=== PATIENT | male | born 1965 | race Caucasian/White ===

== ENCOUNTER 2020-05-18 10:59 | Emergency (ER) | payer MEDICARE, MEDICAID ==
[~2020-05-18] VITALS: Ht 170.2 cm; Wt 80.0 kg
[2020-05-18 11:25] LABS: HEMOGLOBIN 14.1 g/dl (14.0-18.0); IMMATURE GRANULOCYTES 0.4 % (0.0-5.0); MEAN CORPUSCULAR HGB 31.5 pG CALC (26.0-32.0); MEAN CORPUSCULAR HGB CONC 32.8 g/dL CAL (32.0-36.0); NEUT# 4.48 thou/uL (1.82-7.42); RED BLOOD COUNT 4.48 mill/uL (4.70-6.10); RED CELL DISTRI WIDTH 11.8 % (11.5-15.5)
[2020-05-18 11:45] LABS: ALBUMIN 4.3 g/dL (3.2-5.0); ALKALINE PHOSPHATASE 42 u/l (38-126); ANION GAP 12 (6-22 (CALC)); BILIRUBIN, TOTAL 0.9 mg/dL (0.0-1.4); BUN 12 mg/dL (9-20); BUN/CREATININE RATIO 13 (12-20 (CALC)); CARBON DIOXIDE 25 mmol/l (22-30); CHLORIDE 98 mmol/l (95-108); CREATININE 0.9 mg/dL (0.7-1.3); GFR > 60 ML/MIN (>=60 (CALC)); GFR FOR AFR.AMER. > 60 ML/MIN (>=60 (CALC)); POTASSIUM 3.1 mmol/l (3.5-5.1); SGOT/AST 49 u/l (17-59); SODIUM 133 mmol/l (137-146); TOTAL PROTEIN 7.1 g/dL (6.3-8.2)
[2020-05-18 13:10] VITALS: BP 100/56
== END 2020-05-18 13:10 | disposition home or self-care (01) ==
LOC: ED 10:59
PROVIDERS: Family Medicine
DX: R42 Dizziness and giddiness (principal); E87.6 Hypokalemia; I10 Essential (primary) hypertension

== ENCOUNTER 2020-05-20 10:13 | Emergency (ER) | payer MEDICARE, MEDICAID ==
[~2020-05-20] VITALS: Ht 170.2 cm; Wt 76.3 kg
[2020-05-20 10:49] LABS: HEMATOCRIT 42.9 % (39.0-50.0); HEMOGLOBIN 14.2 g/dl (14.0-18.0); IMMATURE GRANULOCYTES 0.2 % (0.0-5.0); MEAN CELL VOLUME 95.1 fL CALC (80.0-100.0); MEAN CORPUSCULAR HGB 31.5 pG CALC (26.0-32.0); MEAN CORPUSCULAR HGB CONC 33.1 g/dL CAL (32.0-36.0); NEUT# 2.79 thou/uL (1.82-7.42); RED BLOOD COUNT 4.51 mill/uL (4.70-6.10); RED CELL DISTRI WIDTH 11.7 % (11.5-15.5)
[2020-05-20] MEDS ORDERED: SIMVASTATIN20 MG PO (10:51)
[2020-05-20] MEDS ORDERED: FUROSEMIDE20 MG PO (10:52)
[2020-05-20] MEDS ORDERED: SEROQUEL100 MG PO (10:52)
[2020-05-20] MEDS ORDERED: OMEPRAZOLE DR20 MG PO (10:53)
[2020-05-20] MEDS ORDERED: LISINOPRIL40 MG PO (10:53)
[2020-05-20] MEDS ORDERED: NORVASC5 M1 PO (10:55)
[2020-05-20 11:15] LABS: ANION GAP 12 (6-22 (CALC)); BUN 7 mg/dL (9-20); BUN/CREATININE RATIO 11 (12-20 (CALC)); CARBON DIOXIDE 25 mmol/l (22-30); CHLORIDE 103 mmol/l (95-108); CREATININE 0.6 mg/dL (0.7-1.3); GFR > 60 ML/MIN (>=60 (CALC)); GFR FOR AFR.AMER. > 60 ML/MIN (>=60 (CALC)); POTASSIUM 3.8 mmol/l (3.5-5.1); SODIUM 136 mmol/l (137-146)
[2020-05-20 11:25] VITALS: BP 132/78
== END 2020-05-20 11:25 | disposition home or self-care (01) ==
LOC: ED 10:13
PROVIDERS: Family Medicine
DX: E87.6 Hypokalemia (principal); R42 Dizziness and giddiness; I10 Essential (primary) hypertension; F17.200 Nicotine dependence, unspecified, uncomplicated

== ENCOUNTER 2021-03-04 22:34 | Emergency (ER) | payer MEDICARE, MEDICAID ==
[~2021-03-04] VITALS: Ht 170.2 cm; Wt 72.0 kg
[~2021-03-04 22:34] MED LIST: FUROSEMIDE20 MG PO; LISINOPRIL40 MG PO; NORVASC5 M1 PO; OMEPRAZOLE DR20 MG PO; SEROQUEL100 MG PO; SIMVASTATIN20 MG PO
[2021-03-04 23:25] LABS: HEMOGLOBIN 15.1 g/dl (14.0-18.0); IMMATURE GRANULOCYTES 0.6 % (0.0-5.0); MEAN CORPUSCULAR HGB 31.9 pG CALC (26.0-32.0); MEAN CORPUSCULAR HGB CONC 32.8 g/dL CAL (32.0-36.0); NEUT# 2.84 thou/uL (1.82-7.42); RED BLOOD COUNT 4.74 mill/uL (4.70-6.10); RED CELL DISTRI WIDTH 13.1 % (11.5-15.5)
[2021-03-04 23:26] LABS: URINE BILIRUBIN - DIPSTICK NEGATIVE (NEGATIVE); URINE BLOOD DIPSTICK NEGATIVE (NEGATIVE); URINE COLOR YELLOW; URINE GLUCOSE - DIPSTICK NEGATIVE (NEGATIVE); URINE KETONE NEGATIVE (NEGATIVE); URINE LEUK ESTERASE NEGATIVE (NEGATIVE); URINE PH 5.5 (4.5-8.0); URINE PROTEIN - DIPSTICK NEGATIVE (NEG-TRACE); URINE UROBILINOGEN - DIPSTICK 0.2 E.U./dL (0.2)
[2021-03-04 23:31] LABS: URINE NITRITE - DIPSTICK NEGATIVE (Negative)
[2021-03-04 23:39] LABS: ALBUMIN 4.2 g/dL (3.2-5.0); ALKALINE PHOSPHATASE 34 u/l (38-126); BUN 10 mg/dL (9-20); BUN/CREATININE RATIO 14 (12-20 (CALC)); CARBON DIOXIDE 25 mmol/l (22-30); CHLORIDE 107 mmol/l (95-108); CREATININE 0.7 mg/dL (0.7-1.3); ETHYL ALCOHOL 292 mg/dl (0-30); GFR > 60 ML/MIN (>=60 (CALC)); GFR FOR AFR.AMER. > 60 ML/MIN (>=60 (CALC)); LIPASE 346 u/l (23-300); SGOT/AST 61 u/l (17-59); TOTAL PROTEIN 7.3 g/dL (6.3-8.2)
[2021-03-04 23:41] LABS: ANION GAP 15 (6-22 (CALC)); BILIRUBIN, TOTAL 0.2 mg/dL (0.0-1.4); SODIUM 143 mmol/l (137-146)
[2021-03-05 06:45] VITALS: BP 104/58
== END 2021-03-05 08:25 | disposition home or self-care (01) ==
LOC: ED 22:34
PROVIDERS: Family Medicine
DX: F10.129 Alcohol abuse with intoxication, unspecified (principal); I10 Essential (primary) hypertension; F17.200 Nicotine dependence, unspecified, uncomplicated

== ENCOUNTER 2021-06-08 00:11 | Emergency (ER) | payer MEDICARE, MEDICAID ==
[~2021-06-08] VITALS: Ht 170.2 cm; Wt 81.0 kg
[2021-06-08 01:06] LABS: HEMATOCRIT 44.1 % (39.0-50.0); HEMOGLOBIN 14.6 g/dl (14.0-18.0); IMMATURE GRANULOCYTES 0.6 % (0.0-5.0); MEAN CELL VOLUME 96.9 fL CALC (80.0-100.0); MEAN CORPUSCULAR HGB 32.1 pG CALC (26.0-32.0); MEAN CORPUSCULAR HGB CONC 33.1 g/dL CAL (32.0-36.0); NEUT# 2.18 thou/uL (1.82-7.42); RED BLOOD COUNT 4.55 mill/uL (4.70-6.10); RED CELL DISTRI WIDTH 11.8 % (11.5-15.5)
[2021-06-08 01:17] LABS: ALBUMIN 3.7 g/dL (3.2-5.0); ALKALINE PHOSPHATASE 32 u/l (38-126); ANION GAP 14 (6-22 (CALC)); BUN 7 mg/dL (9-20); BUN/CREATININE RATIO 12 (12-20 (CALC)); CARBON DIOXIDE 25 mmol/l (22-30); CHLORIDE 109 mmol/l (95-108); CREATININE 0.6 mg/dL (0.7-1.3); ETHYL ALCOHOL 257 mg/dl (0-30); GFR > 60 ML/MIN (>=60 (CALC)); GFR FOR AFR.AMER. > 60 ML/MIN (>=60 (CALC)); POTASSIUM 3.5 mmol/l (3.5-5.1); SGOT/AST 35 u/l (17-59); SODIUM 144 mmol/l (137-146); TOTAL PROTEIN 6.6 g/dL (6.3-8.2)
[2021-06-08 01:21] LABS: BILIRUBIN, TOTAL 0.3 mg/dL (0.0-1.4)
[2021-06-08 01:26] LABS: MYOGLOBIN 22 ng/mL (0 - 121)
[2021-06-08 01:38] LABS: URINE BILIRUBIN - DIPSTICK NEGATIVE (NEGATIVE); URINE BLOOD DIPSTICK NEGATIVE (NEGATIVE); URINE COLOR YELLOW; URINE GLUCOSE - DIPSTICK NEGATIVE (NEGATIVE); URINE KETONE NEGATIVE (NEGATIVE); URINE LEUK ESTERASE NEGATIVE (NEGATIVE); URINE PROTEIN - DIPSTICK NEGATIVE (NEG-TRACE); URINE SPECIFIC GRAVITY <=1.005; URINE UROBILINOGEN - DIPSTICK 0.2 E.U./dL (0.2)
[2021-06-08 01:39] LABS: URINE NITRITE - DIPSTICK NEGATIVE (Negative)
[2021-06-08] MEDS ORDERED: KEPPRA500 M2 PO (02:36)
[2021-06-08 06:41] VITALS: BP 104/67
== END 2021-06-08 06:41 | disposition home or self-care (01) ==
LOC: ED 00:11
PROVIDERS: Family Medicine
DX: F10.129 Alcohol abuse with intoxication, unspecified (principal); G40.409 Other generalized epilepsy and epileptic syndromes, not intractable, without status epilepticus; I10 Essential (primary) hypertension; F17.200 Nicotine dependence, unspecified, uncomplicated; T42.76XA Underdosing of unspecified antiepileptic and sedative-hypnotic drugs, initial encounter; Z91.128 Patient's intentional underdosing of medication regimen for other reason; Z20.822 Contact with and (suspected) exposure to COVID-19; R56.9 Unspecified convulsions
CPT/HCPCS: J1953

== ENCOUNTER 2021-06-08 12:45 | Emergency (ER) | payer MEDICARE, MEDICAID ==
[~2021-06-08] VITALS: Ht 170.2 cm; Wt 86.0 kg
[~2021-06-08 12:45] MED LIST changes: +KEPPRA500 M2 PO
[2021-06-08 13:26] LABS: HEMATOCRIT 43.5 % (39.0-50.0); HEMOGLOBIN 14.5 g/dl (14.0-18.0); IMMATURE GRANULOCYTES 0.1 % (0.0-5.0); MEAN CELL VOLUME 97.8 fL CALC (80.0-100.0); MEAN CORPUSCULAR HGB 32.6 pG CALC (26.0-32.0); MEAN CORPUSCULAR HGB CONC 33.3 g/dL CAL (32.0-36.0); NEUT# 7.26 thou/uL (1.82-7.42); RED BLOOD COUNT 4.45 mill/uL (4.70-6.10); RED CELL DISTRI WIDTH 11.8 % (11.5-15.5)
[2021-06-08 13:41] LABS: ALBUMIN 4.3 g/dL (3.2-5.0); ALKALINE PHOSPHATASE 39 u/l (38-126); ANION GAP 18 (6-22 (CALC)); BILIRUBIN, TOTAL 0.6 mg/dL (0.0-1.4); BUN 12 mg/dL (9-20); BUN/CREATININE RATIO 17 (12-20 (CALC)); CARBON DIOXIDE 22 mmol/l (22-30); CHLORIDE 103 mmol/l (95-108); CREATININE 0.7 mg/dL (0.7-1.3); GFR > 60 ML/MIN (>=60 (CALC)); GFR FOR AFR.AMER. > 60 ML/MIN (>=60 (CALC)); POTASSIUM 4.3 mmol/l (3.5-5.1); SGOT/AST 38 u/l (17-59); SODIUM 139 mmol/l (137-146); TOTAL PROTEIN 7.4 g/dL (6.3-8.2)
[2021-06-08 14:36] VITALS: BP 138/74
== END 2021-06-08 14:55 | disposition home or self-care (01) ==
LOC: ED 12:45
PROVIDERS: Family Medicine
DX: G40.409 Other generalized epilepsy and epileptic syndromes, not intractable, without status epilepticus (principal); I10 Essential (primary) hypertension; F17.200 Nicotine dependence, unspecified, uncomplicated

== ENCOUNTER 2021-06-22 09:20 | Emergency (ER) | payer MEDICARE, MEDICAID ==
[~2021-06-22] VITALS: Ht 170.2 cm; Wt 72.0 kg
[2021-06-22 09:45] LABS: HEMATOCRIT 44.3 % (39.0-50.0); HEMOGLOBIN 14.9 g/dl (14.0-18.0); IMMATURE GRANULOCYTES 0.5 % (0.0-5.0); MEAN CELL VOLUME 97.4 fL CALC (80.0-100.0); MEAN CORPUSCULAR HGB 32.7 pG CALC (26.0-32.0); MEAN CORPUSCULAR HGB CONC 33.6 g/dL CAL (32.0-36.0); NEUT# 1.81 thou/uL (1.82-7.42); RED BLOOD COUNT 4.55 mill/uL (4.70-6.10); RED CELL DISTRI WIDTH 12.4 % (11.5-15.5)
[2021-06-22 10:10] LABS: ALKALINE PHOSPHATASE 37 u/l (38-126); ANION GAP 13 (6-22 (CALC)); BILIRUBIN, TOTAL 0.5 mg/dL (0.0-1.4); BUN 9 mg/dL (9-20); BUN/CREATININE RATIO 14 (12-20 (CALC)); CARBON DIOXIDE 22 mmol/l (22-30); CHLORIDE 110 mmol/l (95-108); CREATININE 0.7 mg/dL (0.7-1.3); ETHYL ALCOHOL 172 mg/dl (0-30); GFR > 60 ML/MIN (>=60 (CALC)); GFR FOR AFR.AMER. > 60 ML/MIN (>=60 (CALC)); LIPASE 538 u/l (23-300); MAGNESIUM 1.9 mg/dL (1.6-2.3); POTASSIUM 3.8 mmol/l (3.5-5.1); SGOT/AST 37 u/l (17-59); SODIUM 142 mmol/l (137-146); TOTAL PROTEIN 7.1 g/dL (6.3-8.2)
[2021-06-22 12:26] LABS: URINE BILIRUBIN - DIPSTICK NEGATIVE (NEGATIVE); URINE BLOOD DIPSTICK TRACE-INTACT (NEGATIVE); URINE COLOR YELLOW; URINE GLUCOSE - DIPSTICK NEGATIVE (NEGATIVE); URINE KETONE NEGATIVE (NEGATIVE); URINE LEUK ESTERASE NEGATIVE (NEGATIVE); URINE PH 5.5 (4.5-8.0); URINE PROTEIN - DIPSTICK TRACE mg/dL (NEG-TRACE); URINE SPECIFIC GRAVITY 1.025; URINE UROBILINOGEN - DIPSTICK 0.2 E.U./dL (0.2)
[2021-06-22 12:28] LABS: URINE NITRITE - DIPSTICK NEGATIVE (Negative)
[2021-06-22] MEDS ORDERED: ZPAK PO (18:15)
[2021-06-23 06:11] LABS: ETHYL ALCOHOL 0 mg/dl (0-30); LIPASE 197 u/l (23-300)
[2021-06-23 19:34] LABS: HEMATOCRIT 49.4 % (39.0-50.0); HEMOGLOBIN 16.7 g/dl (14.0-18.0); IMMATURE GRANULOCYTES 0.1 % (0.0-5.0); MEAN CELL VOLUME 96.3 fL CALC (80.0-100.0); MEAN CORPUSCULAR HGB 32.6 pG CALC (26.0-32.0); MEAN CORPUSCULAR HGB CONC 33.8 g/dL CAL (32.0-36.0); NEUT# 4.84 thou/uL (1.82-7.42); RED BLOOD COUNT 5.13 mill/uL (4.70-6.10); RED CELL DISTRI WIDTH 12.1 % (11.5-15.5)
[2021-06-23 19:46] LABS: ALBUMIN 4.5 g/dL (3.2-5.0); ALKALINE PHOSPHATASE 48 u/l (38-126); BUN 8 mg/dL (9-20); BUN/CREATININE RATIO 12 (12-20 (CALC)); CHLORIDE 100 mmol/l (95-108); CREATININE 0.7 mg/dL (0.7-1.3); GFR > 60 ML/MIN (>=60 (CALC)); GFR FOR AFR.AMER. > 60 ML/MIN (>=60 (CALC)); SGOT/AST 41 u/l (17-59)
[2021-06-23 19:47] LABS: ANION GAP 12 (6-22 (CALC)); BILIRUBIN, TOTAL 0.9 mg/dL (0.0-1.4); CARBON DIOXIDE 27 mmol/l (22-30); POTASSIUM 4.7 mmol/l (3.5-5.1); SODIUM 134 mmol/l (137-146)
[2021-06-24 16:25] VITALS: BP 168/98
== END 2021-06-24 16:25 | disposition short-term general hospital (02) ==
LOC: ED 09:20
PROVIDERS: Emergency Medicine; Family Medicine
DX: R56.9 Unspecified convulsions (principal); J18.9 Pneumonia, unspecified organism; R45.850 Homicidal ideations; R45.851 Suicidal ideations; F10.229 Alcohol dependence with intoxication, unspecified; I10 Essential (primary) hypertension; K21.9 Gastro-esophageal reflux disease without esophagitis; E78.5 Hyperlipidemia, unspecified; F17.200 Nicotine dependence, unspecified, uncomplicated; Z20.822 Contact with and (suspected) exposure to COVID-19
CPT/HCPCS: J1953; J2060; Q9967

== ENCOUNTER 2021-09-10 19:12 | Emergency (ER) | payer MEDICARE, MEDICAID ==
[~2021-09-10] VITALS: Ht 170.2 cm; Wt 73.6 kg
[~2021-09-10 19:12] MED LIST changes: +ZPAK PO
[2021-09-10 19:59] LABS: HEMATOCRIT 49.3 % (39.0-50.0); HEMOGLOBIN 16.7 g/dl (14.0-18.0); IMMATURE GRANULOCYTES 0.2 % (0.0-5.0); MEAN CELL VOLUME 93.5 fL CALC (80.0-100.0); MEAN CORPUSCULAR HGB 31.7 pG CALC (26.0-32.0); MEAN CORPUSCULAR HGB CONC 33.9 g/dL CAL (32.0-36.0); NEUT# 3.59 thou/uL (1.82-7.42); RED BLOOD COUNT 5.27 mill/uL (4.70-6.10); RED CELL DISTRI WIDTH 12.1 % (11.5-15.5)
[2021-09-10 20:15] LABS: ALBUMIN 4.6 g/dL (3.2-5.0); ALKALINE PHOSPHATASE 52 u/l (38-126); ANION GAP 19 (6-22 (CALC)); BILIRUBIN, TOTAL 0.4 mg/dL (0.0-1.4); BUN 10 mg/dL (9-20); BUN/CREATININE RATIO 12 (12-20 (CALC)); CARBON DIOXIDE 28 mmol/l (22-30); CHLORIDE 102 mmol/l (95-108); CREATININE 0.9 mg/dL (0.7-1.3); ETHYL ALCOHOL 270 mg/dl (0-30); GFR > 60 ML/MIN (>=60 (CALC)); GFR FOR AFR.AMER. > 60 ML/MIN (>=60 (CALC)); POTASSIUM 4.5 mmol/l (3.5-5.1); SGOT/AST 55 u/l (17-59); SODIUM 144 mmol/l (137-146); TOTAL PROTEIN 8.1 g/dL (6.3-8.2)
[2021-09-10 20:24] LABS: MYOGLOBIN 24 ng/mL (0 - 121)
[2021-09-10 20:50] LABS: URINE BILIRUBIN - DIPSTICK NEGATIVE (NEGATIVE); URINE BLOOD DIPSTICK SMALL (NEGATIVE); URINE COLOR YELLOW; URINE GLUCOSE - DIPSTICK NEGATIVE (NEGATIVE); URINE KETONE NEGATIVE (NEGATIVE); URINE LEUK ESTERASE NEGATIVE (NEGATIVE); URINE PH 5.5 (4.5-8.0); URINE PROTEIN - DIPSTICK 100 mg/dL (NEG-TRACE); URINE SPECIFIC GRAVITY >=1.030; URINE UROBILINOGEN - DIPSTICK 0.2 E.U./dL (0.2)
[2021-09-10 20:51] LABS: URINE EPITHELIAL CELLS FEW EPI/hpf (0-FEW); URINE MUCUS MODERATE hpf (NONE-FEW); URINE NITRITE - DIPSTICK NEGATIVE (Negative)
[2021-09-11 08:06] VITALS: BP 189/88
== END 2021-09-11 08:09 | disposition home or self-care (01) ==
LOC: ED 19:12
PROVIDERS: Emergency Medicine
DX: G40.409 Other generalized epilepsy and epileptic syndromes, not intractable, without status epilepticus (principal); F10.229 Alcohol dependence with intoxication, unspecified; E87.2 Acidosis; F31.9 Bipolar disorder, unspecified; F17.200 Nicotine dependence, unspecified, uncomplicated

== ENCOUNTER 2021-09-23 21:37 | Emergency (ER) | payer MEDICARE, MEDICAID ==
[~2021-09-23] VITALS: Ht 170.2 cm; Wt 75.0 kg
[2021-09-23 22:01] LABS: HEMATOCRIT 51.5 % (39.0-50.0); IMMATURE GRANULOCYTES 0.1 % (0.0-5.0); MEAN CORPUSCULAR HGB 31.4 pG CALC (26.0-32.0); NEUT# 2.82 thou/uL (1.82-7.42); RED BLOOD COUNT 5.42 mill/uL (4.70-6.10); RED CELL DISTRI WIDTH 12.1 % (11.5-15.5)
[2021-09-23 22:19] LABS: ALBUMIN 4.7 g/dL (3.2-5.0); ALKALINE PHOSPHATASE 57 u/l (38-126); BUN 10 mg/dL (9-20); BUN/CREATININE RATIO 12 (12-20 (CALC)); CHLORIDE 100 mmol/l (95-108); CREATININE 0.8 mg/dL (0.7-1.3); ETHYL ALCOHOL 290 mg/dl (0-30); GFR > 60 ML/MIN (>=60 (CALC)); GFR FOR AFR.AMER. > 60 ML/MIN (>=60 (CALC)); POTASSIUM 4.3 mmol/l (3.5-5.1); SGOT/AST 67 u/l (17-59); SODIUM 139 mmol/l (137-146); TOTAL PROTEIN 8.8 g/dL (6.3-8.2)
[2021-09-23 22:23] LABS: ANION GAP 21 (6-22 (CALC)); BILIRUBIN, TOTAL 0.6 mg/dL (0.0-1.4); CARBON DIOXIDE 22 mmol/l (22-30)
[2021-09-23 22:30] LABS: MYOGLOBIN 32 ng/mL (0 - 121)
[2021-09-24 01:30] LABS: URINE BILIRUBIN - DIPSTICK NEGATIVE (NEGATIVE); URINE BLOOD DIPSTICK TRACE-INTACT (NEGATIVE); URINE COLOR YELLOW; URINE GLUCOSE - DIPSTICK NEGATIVE (NEGATIVE); URINE KETONE TRACE mg/dL (NEGATIVE); URINE LEUK ESTERASE NEGATIVE (NEGATIVE); URINE PH 5.5 (4.5-8.0); URINE PROTEIN - DIPSTICK TRACE mg/dL (NEG-TRACE); URINE UROBILINOGEN - DIPSTICK 0.2 E.U./dL (0.2)
[2021-09-24 01:35] LABS: URINE NITRITE - DIPSTICK NEGATIVE (Negative)
[2021-09-24 09:11] VITALS: BP 137/83
== END 2021-09-24 09:25 | disposition home or self-care (01) ==
LOC: ED 21:37
PROVIDERS: Emergency Medicine
DX: F10.229 Alcohol dependence with intoxication, unspecified (principal); E87.2 Acidosis; F19.10 Other psychoactive substance abuse, uncomplicated; I10 Essential (primary) hypertension; F17.200 Nicotine dependence, unspecified, uncomplicated; Y90.8 Blood alcohol level of 240 mg/100 ml or more

== ENCOUNTER 2022-03-01 19:56 | Emergency (ER) | payer MEDICARE, MEDICAID ==
[~2022-03-01] VITALS: Ht 170.2 cm; Wt 74.5 kg
[2022-03-01 20:30] VITALS: BP 152/97
[2022-03-01 20:37] LABS: IMMATURE GRANULOCYTES 0.2 % (0.0-5.0); MEAN CELL VOLUME 97.8 fL CALC (80.0-100.0); MEAN CORPUSCULAR HGB 32.5 pG CALC (26.0-32.0); MEAN CORPUSCULAR HGB CONC 33.3 g/dL CAL (32.0-36.0); NEUT# 3.64 thou/uL (1.82-7.42); RED BLOOD COUNT 4.61 mill/uL (4.70-6.10); RED CELL DISTRI WIDTH 12.5 % (11.5-15.5)
[2022-03-01 20:40] LABS: HEMATOCRIT 45.1 % (39.0-50.0)
[2022-03-01 20:51] LABS: ALBUMIN 4.1 g/dL (3.2-5.0); ALKALINE PHOSPHATASE 40 u/l (38-126); BILIRUBIN, TOTAL 0.6 mg/dL (0.0-1.4); BUN 11 mg/dL (9-20); BUN/CREATININE RATIO 13 (12-20 (CALC)); CHLORIDE 104 mmol/l (95-108); CREATININE 0.9 mg/dL (0.7-1.3); ETHYL ALCOHOL 0 mg/dl (0-30); GFR FOR AFR.AMER. > 60 ML/MIN (>=60 (CALC)); GFR OTHER RACES > 60 ML/MIN (>=60 (CALC)); POTASSIUM 3.6 mmol/l (3.5-5.1); SGOT/AST 29 u/l (17-59); SODIUM 139 mmol/l (137-146)
[2022-03-01 20:55] LABS: ANION GAP 11 (6-22 (CALC)); CARBON DIOXIDE 28 mmol/l (22-30)
[2022-03-01 21:01] VITALS: BP 162/90
[2022-03-01 21:03] LABS: MYOGLOBIN 34 ng/mL (0 - 121)
[2022-03-01 21:30] VITALS: BP 149/90
[2022-03-01 22:01] VITALS: BP 134/88
[2022-03-01 22:19] LABS: URINE BILIRUBIN - DIPSTICK NEGATIVE (NEGATIVE); URINE BLOOD DIPSTICK TRACE-INTACT (NEGATIVE); URINE COLOR YELLOW; URINE GLUCOSE - DIPSTICK NEGATIVE (NEGATIVE); URINE KETONE TRACE mg/dL (NEGATIVE); URINE LEUK ESTERASE NEGATIVE (NEGATIVE); URINE PROTEIN - DIPSTICK TRACE mg/dL (NEG-TRACE); URINE UROBILINOGEN - DIPSTICK 0.2 E.U./dL (0.2)
[2022-03-01 22:21] LABS: URINE NITRITE - DIPSTICK NEGATIVE (Negative)
[2022-03-01] MEDS ORDERED: KEPPRA500 M2 PO (22:26)
[2022-03-01] MEDS ORDERED: LISINOP/HCTZ1 TA1 PO (22:26)
[2022-03-01] MEDS ORDERED: AMLODIPINE BESYL5 MG PO (22:26)
[2022-03-01 22:31] VITALS: BP 161/92
[2022-03-01 23:00] VITALS: BP 161/92
== END 2022-03-01 23:00 | disposition home or self-care (01) ==
LOC: ED 19:56
PROVIDERS: Family Medicine
DX: R56.9 Unspecified convulsions (principal); I10 Essential (primary) hypertension; F10.20 Alcohol dependence, uncomplicated; F17.200 Nicotine dependence, unspecified, uncomplicated
CPT/HCPCS: J1953

== ENCOUNTER 2023-06-17 13:59 | Emergency (ER) | payer MEDICARE, MEDICAID ==
[~2023-06-17] VITALS: Ht 170.2 cm; Wt 67.0 kg
[~2023-06-17 13:59] MED LIST changes: +AMLODIPINE BESYL5 MG PO; +LISINOP/HCTZ1 TA1 PO
[2023-06-17 14:11] VITALS: BP 180/97
== END 2023-06-17 14:30 | disposition left against medical advice (07) ==
LOC: ED 13:59
DX: R07.9 Chest pain, unspecified (principal); I10 Essential (primary) hypertension; F10.20 Alcohol dependence, uncomplicated; Z53.29 Procedure and treatment not carried out because of patient's decision for other reasons

== ENCOUNTER 2023-10-18 14:16 | Emergency (ER) | payer MEDICARE, MEDICAID ==
[~2023-10-18] VITALS: Ht 170.2 cm; Wt 69.0 kg
[2023-10-18 15:48] VITALS: BP 205/106
[2023-10-18 15:51] VITALS: BP 207/111
[2023-10-18 16:00] VITALS: BP 175/105
[2023-10-18] MEDS ORDERED: VALTREX1 GM PO (16:25)
[2023-10-18 16:33] VITALS: BP 175/105
== END 2023-10-18 17:12 | disposition home or self-care (01) ==
LOC: ED 14:16
DX: B02.9 Zoster without complications (principal); I10 Essential (primary) hypertension; F10.20 Alcohol dependence, uncomplicated; F31.9 Bipolar disorder, unspecified; F17.210 Nicotine dependence, cigarettes, uncomplicated

== ENCOUNTER 2023-11-06 14:55 | Emergency (ER) | payer MEDICARE, MEDICAID ==
[~2023-11-06] VITALS: Ht 170.2 cm; Wt 72.5 kg
[~2023-11-06 14:55] MED LIST changes: +VALTREX1 GM PO
[2023-11-06 15:11] VITALS: BP 177/99
[2023-11-06 15:15] VITALS: BP 160/101
[2023-11-06 15:39] VITALS: BP 160/101
== END 2023-11-06 15:44 | disposition home or self-care (01) ==
LOC: ED 14:55
DX: B02.9 Zoster without complications (principal); I10 Essential (primary) hypertension; F31.9 Bipolar disorder, unspecified; F17.200 Nicotine dependence, unspecified, uncomplicated

== ENCOUNTER 2024-08-25 11:03 | Emergency (ER) | payer MEDICARE, MEDICAID ==
[~2024-08-25] VITALS: Ht 170.2 cm; Wt 65.3 kg
[2024-08-25] VITALS (8 sets, daily range): BP systolic 132–172; BP diastolic 79–103
[2024-08-25 12:01] LABS: BASO% 0.6 % (0-3); EOS% 1.4 % (0-8); HEMATOCRIT 41.3 % (39.0-50.0); IMMATURE GRANULOCYTES 0.1 % (0.0-5.0); LYMPH% 24.3 % (15-41); MEAN CELL VOLUME 97.4 fL CALC (80.0-100.0); MEAN CORPUSCULAR HGB 31.8 pG CALC (26.0-32.0); MEAN CORPUSCULAR HGB CONC 32.7 g/dL CAL (32.0-36.0); MONO% 10.6 % (2-13); NEUT# 4.45 thou/uL (1.82-7.42); RED BLOOD COUNT 4.24 mill/uL (4.70-6.10)
[2024-08-25 12:03] LABS: HEMOGLOBIN 13.5 g/dl (14.0-18.0)
[2024-08-25 12:43] LABS: ALBUMIN 4.1 g/dL (3.2-5.0); BILIRUBIN, TOTAL 0.5 mg/dL (0.2-1.3); CREATININE 0.6 mg/dL (0.7-1.3); POTASSIUM 3.8 mmol/l (3.5-5.1); TOTAL PROTEIN 6.8 g/dL (6.3-8.2)
== END 2024-08-25 14:25 | disposition home or self-care (01) ==
LOC: ED 11:03
PROVIDERS: Family Medicine
DX: R56.9 Unspecified convulsions (principal); I10 Essential (primary) hypertension; E78.5 Hyperlipidemia, unspecified; F41.9 Anxiety disorder, unspecified; F31.9 Bipolar disorder, unspecified; F17.210 Nicotine dependence, cigarettes, uncomplicated; T42.76XA Underdosing of unspecified antiepileptic and sedative-hypnotic drugs, initial encounter; Z91.128 Patient's intentional underdosing of medication regimen for other reason; Z59.00 Homelessness unspecified
CPT/HCPCS: J1953

== ENCOUNTER 2024-09-09 10:25 | Emergency (ER) | payer MEDICARE, MEDICAID ==
[2024-09-09] VITALS (7 sets, daily range): BP systolic 146–174; BP diastolic 58–95
[~2024-09-09] VITALS: Ht 170.2 cm; Wt 66.0 kg
== END 2024-09-09 13:08 | disposition home or self-care (01) ==
LOC: ED 10:25
DX: R10.32 Left lower quadrant pain (principal); G40.909 Epilepsy, unspecified, not intractable, without status epilepticus; I10 Essential (primary) hypertension; F31.9 Bipolar disorder, unspecified; F10.20 Alcohol dependence, uncomplicated; Z72.0 Tobacco use

== ENCOUNTER 2024-10-21 06:02 | Emergency (ER) | payer MEDICARE, MEDICAID ==
[2024-10-21] VITALS (8 sets, daily range): BP systolic 110–143; BP diastolic 71–85
[~2024-10-21] VITALS: Ht 170.2 cm; Wt 54.0 kg
[2024-10-21 06:37] LABS: BASO% 0.5 % (0-3); EOS% 1.3 % (0-8); HEMATOCRIT 46.8 % (39.0-50.0); HEMOGLOBIN 15.1 g/dl (14.0-18.0); IMMATURE GRANULOCYTES 0.3 % (0.0-5.0); LYMPH% 24.7 % (15-41); MEAN CELL VOLUME 95.7 fL CALC (80.0-100.0); MEAN CORPUSCULAR HGB 30.9 pG CALC (26.0-32.0); MEAN CORPUSCULAR HGB CONC 32.3 g/dL CAL (32.0-36.0); MONO% 9.5 % (2-13); NEUT# 3.81 thou/uL (1.82-7.42); NEUT% 63.7 % (42-76); RED BLOOD COUNT 4.89 mill/uL (4.70-6.10); RED CELL DISTRI WIDTH 12.5 % (11.5-15.5)
[2024-10-21 06:49] LABS: ALBUMIN 4.7 g/dL (3.2-5.0); BILIRUBIN, TOTAL 0.4 mg/dL (0.2-1.3); CREATININE 0.7 mg/dL (0.7-1.3); POTASSIUM 3.5 mmol/l (3.5-5.1); TOTAL PROTEIN 7.9 g/dL (6.3-8.2)
[2024-10-21 07:38] LABS: URINE BILIRUBIN - DIPSTICK Negative (NEGATIVE); URINE BLOOD DIPSTICK Moderate (NEGATIVE); URINE GLUCOSE - DIPSTICK Negative (NEGATIVE); URINE LEUK ESTERASE Trace (NEGATIVE); URINE PH 5.5 (4.5-8.0); URINE PROTEIN - DIPSTICK 100 mg/dL (NEG-TRACE); URINE SPECIFIC GRAVITY >=1.030; URINE UROBILINOGEN - DIPSTICK 0.2 E.U./dL (0.2)
[2024-10-21 07:41] LABS: URINE COLOR Yellow; URINE NITRITE - DIPSTICK Positive (Negative)
[2024-10-21 07:51] LABS: URINE KETONE Negative (NEGATIVE)
[2024-10-21 07:52] LABS: URINE BACTERIA FEW hpf; URINE EPITHELIAL CELLS MODERATE EPI/hpf (0-FEW)
== END 2024-10-21 10:50 | disposition home or self-care (01) ==
LOC: ED 06:02
PROVIDERS: Family Medicine
DX: G40.909 Epilepsy, unspecified, not intractable, without status epilepticus (principal); F10.229 Alcohol dependence with intoxication, unspecified; Y90.6 Blood alcohol level of 120-199 mg/100 ml; I10 Essential (primary) hypertension; F31.9 Bipolar disorder, unspecified; F10.20 Alcohol dependence, uncomplicated; F17.210 Nicotine dependence, cigarettes, uncomplicated